=== PATIENT | male | born 1945 | race Caucasian/White ===

== ENCOUNTER 2024-01-16 16:38 | Emergency (ER) | payer MEDICARE, OTHER, SELFPAY ==
[2024-01-16 16:51] VITALS: BP 156/89
--- NOTE | 2024-01-16 19:25 | ED.GENMED ---
History of Present Illness
General
Chief Complaint: Musculo-Skeletal Complaint
Source: patient
Exam Limitations: none
Time Seen by Provider: 01/16/24 19:08
Nursing documentation reviewed up to this point in time: agreed with
Travel History
Have you had any contact with someone who has COVID-19?: No
Do you have any symptoms of coronavirus? Fever > 100 degrees, chills, cough, shortness of breath, sore throat, loss of taste or smell, muscle aches, or headache?: No
History of Present Illness
History of Present Illness:
Patient presents to ED secondary to persistent right shoulder pain, after he lost balance and fell forward, landing on his right elbow. Denies any other injuries from the fall. Denies loss of sensation or weakness.
Past History
Past History
ED Past Medical History: Cancer (Prostate ) and Other (Diverticulitis, UTI, )
ED Past Surgical History: Other (Hernia repair X 4, Thyroid surgery, )
Social History
Tobacco: Former smoker
Alcohol: Occasional
Personal:
Living: with family
Review of Systems
Review of Systems
Allergies reviewed?: Yes
All Other Systems: ROS reviewed and negative except as documented in HPI and ROS
Constitutional: Reports no symptoms
Musculoskeletal: Reports other (Shoulder and elbow pain.)
Skin: Reports other (Ecchymosis)
Neurological: Reports no symptoms; Denies weakness or numbness
Phy Exam
Physical Exam
Physical Exam:
Physical Exam
General: no apparent distress, not acutely ill. afebrile
Head: nc/at. eomi
Neck: supple. normal range of motion
Neuro: alert and oriented. no focal neurological deficits
Skin: no rash
Psychiatric: well kept. interactive and cooperative
Extremities: right shoulder pain with elevation, without obvious deformity. swelling/erythema noted over right olecranon, without deformity.
Course
Orders/Labs/Results
Orders:
Orders
01/16/24 16:53
CR Elbow - Right Min 3 Views Urgent
Comment:
Reason For Exam: fall
CR Shoulder, Trauma - Right Urgent
Reason For Exam: fall
Vital Signs
Initial and Last Documented VS:
Initial Vital Signs
Temp Pulse Resp BP Pulse Ox
98.3 F 57 18 156/89 96
01/16/24 16:51 01/16/24 16:51 01/16/24 16:51 01/16/24 16:51 01/16/24 16:51
Last Documented Vital Signs
Temp Pulse Resp BP Pulse Ox
98.3 F 57 18 156/89 96
01/16/24 16:51 01/16/24 16:51 01/16/24 16:51 01/16/24 16:51 01/16/24 16:51
MDM/Problems Addressed
MDM/Problems Addressed:
History, exam, and x-ray consistent with likely an acute elbow fracture. Fortunately, patient remains neurovascularly intact, with minimal discomfort even with full range of motion. As such, decision made to place patient on arm sling along with
recommendation for an outpatient consultation with orthopedic surgeon.
*Critical Care Note
Total Time (30-74mins, 75-104mins- exclusive of procedures): Not Applicable
ED Attending Note
-
Portions of this chart may have been created with voice recognition software.� Occasional wrong word or��sound alike� substitutions may have occurred due to the inherent limitations of voice recognition software.
Discharge Plan
Departure
Patient Disposition: Home (Routine Discharge)
Date of Disposition: 01/16/24
Time of Disposition: 19:33
Patient with high blood pressure during this ER visit?: Yes
Discharge Problem:
Elbow fracture, right
Instructions: Elbow Fracture, Adult ED
Prescriptions:
No Action
tamsulosin [Flomax] 0.4 mg capsule
0.4 mg PO HS Qty: 7 0RF
ondansetron 4 mg tablet,disintegrating
4 mg PO Q8H PRN (Reason: nausea and vomiting) Qty: 7 0RF
oxycodone-acetaminophen [Percocet] 5-325 mg tablet
1 tab PO Q4HPRN PRN (Reason: pain) Qty: 7 0RF
Referrals:
Bebeto Rodriguez MD [Family Provider] -
Florin Santacruz MD [Active] -
Activity Restrictions/Additional Instructions:
As discussed, please follow-up with referred orthopedic surgeon for further evaluation and treatment.
Interventions
Interventions:
*Risk Screen - Suicide Last Done: 01/16/24 16:51
*General Assessment Last Done: 01/16/24 16:51
*Neglect/Abuse Screening Last Done: 01/16/24 16:51
*Nursing Disposition Last Done: 01/16/24 19:38
ED-Musculoskeletal Assessment Last Done: 01/16/24 19:37
Discharge Date and Time
Discharge Date/Time: 01/16/24 19:38
Print Language: GIBRALTARIAN
== END 2024-01-16 19:38 | disposition home or self-care (01) ==
LOC: EMR 16:38
PROVIDERS: EMERGENCY PHYSICIAN Emergency Medicine; FAMILY PHYSICIAN Internal Medicine
DX: S52.021A Displaced fracture of olecranon process without intraarticular extension of right ulna, initial encounter for closed fracture (principal); W01.0XXA Fall on same level from slipping, tripping and stumbling without subsequent striking against object, initial encounter; R03.0 Elevated blood-pressure reading, without diagnosis of hypertension; Z87.891 Personal history of nicotine dependence
CPT/HCPCS: 99283; 73030; 73080